=== PATIENT | male | born 1930 | race Asian ===

== ENCOUNTER 2016-06-13 17:34 | Emergency (ER) | payer MEDICARE, OTHER ==
[~2016-06-13] VITALS: Ht 165.1 cm; Wt 77.1 kg
[2016-06-13] MEDS ORDERED: Ampicillin/Sulbactam Sod 3 GM in NS 110 ML IV SCH (17:45)
[2016-06-13] MEDS ORDERED: metroNIDAZOLE 500mg 100 ML IV SCH (17:45)
[2016-06-13 18:40] VITALS: BP 125/97
[2016-06-13 19:50] VITALS: BP 130/58
[2016-06-13 23:00] VITALS: BP 131/70
--- NOTE | 2016-06-14 09:57 | Diagnostic Imaging Report ---
HISTORY: Pain.\H\ \N\COMPARISON: None. \H\ \N\TECHNIQUE: \H\ \N\Serial axial images were obtained through the cervical spine without the use of intravenous contrast on a multidetector CT. Multiplanar reformatted images were then obtained. FINDINGS: Motion artifact diminishes sensitivity of exam findings. Vertebral body heights appear preserved. Moderate to severe disc space height loss is noted, particularly at C3-C4 through C7-T1 levels. Straightening of the cervical spine is noted. There is no prevertebral or paraspinal soft tissue swelling or other CT evidence of acute fracture, subluxation, or jumped facet. 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 The visualized upper esophagus is air distended and patulous. Atherosclerotic calcification is noted at the carotid bulbs. IMPRESSION: 1. No CT evidence of acute cervical spine fracture or subluxation. 2. Multilevel cervical spondylosis with uncovertebral and facet arthropathy and OPLL resulting in moderate to severe spinal canal and neural foraminal stenosis. 3. Air distended, patulous cervical esophagus. 4. Atherosclerotic vascular disease.
--- NOTE | 2016-06-14 13:43 | Emergency Room Report ---
History of Present Illness General Chief Complaint: Multiple Trauma/Fall Source: Patient, EMS Present Illness HPI Patient is a 86-year-old male who presented after a mechanical fall while trying to transfer from wheelchair to bed. Patient had no loss of consciousness. The patient prior history of Parkinson's disease. Patient was noted to have sustained a laceration to the top of his head. He had not been vomiting or having increased confusion since the incident. The Allergies: Coded Allergies: No Known Allergies (Unverified , 06/13/16) Patient History Reviewed Nursing Documentation: PMH: Agreed, PSxH: Agreed Nursing Documentation-PMH Past Medical History: No History, Except For Hx Hypertension: Yes Review of Systems All Other Systems: limited - by poor cooperation Physical Exam Vital Signs Date Time Temp Pulse Resp B/P Pulse Ox O2 Delivery O2 Flow Rate FiO2 06/13/16 17:24 80 15 137/59 97 Room Air 06/13/16 19:50 98.6 General Appearance: well appearing, no apparent distress, alert, GCS 15 Head: normocephalic, atraumatic ENT: hearing grossly normal, normal voice Neck: full range of motion, supple Respiratory: no respiratory distress, speaking full sentences Cardiovascular #1: normal inspection, normal peripheral pulses, regular rate, rhythm, no edema Musculoskeletal: no calf tenderness, other - resting tremor Neurologic: alert, oriented x3, responsive, normal gait, other - tremor right upper extremitiy Psychiatric: normal inspection, mood/affect normal Skin: laceration Procedures Laceration/Wound Repair Laceration/Wound Repair : Consent: Emergent Wound Location: head Wound's Depth, Shape: superficial Wound Length (cm): 3 Wound Explored: clean Betadine Prep?: No Wound Debrided: minimal Wound Repaired With: Dermabond Patient Tolerated: Well Complications: None Medical Decision Making Diagnostic Impression: Primary Impression: Fall Additional Impression: Scalp laceration ER Course Patient presented after a fall.Differential diagnosis included was not limited to neck fracture, CVA, close head injury, syncopal episode, basilar ischemia. CT the head read by radiology show chronic ischemic white matter changes. There is no evident fracture or hematoma. A CT of the cervical spine read by radiologist showed degenerative changes without evident fracture. The patient' s wound was closed with Dermabond. At the time of discharge patient was awake and alert. Patient was sent back to nursing facility via ambulance. Last Vital Signs Date Time Temp Pulse Resp B/P Pulse Ox O2 Delivery O2 Flow Rate FiO2 06/13/16 23:00 83 14 131/70 100 Room Air 06/13/16 19:50 98.6 Status: improved Disposition: HOME, SELF-CARE Condition: Stable Patient Instructions: Head Injury, Adult, [id number], Tissue Adhesive Wound Care Olayinka Frederick Jun 14, 2016 13:43
--- NOTE | 2016-06-15 08:42 | Diagnostic Imaging Report ---
CT Brain without Intravenous Contrast INDICATION: Pain. COMPARISON: None TECHNIQUE: Serial axial images were obtained from the the skull base through the vertex without intravenous contrast. Coronal reformats were obtained. Dose Estimate: Total DLP 1467 mGycm CTDIvol 70 mGy FINDINGS: Few scattered periventricular and subcortical white matter hypodensities are nonspecific but may reflect the sequela of chronic microangiopathy. There is no evidence of acute intracranial hemorrhage or territorial infarct. The cortical sulci, ventricles and extra-axial CSF spaces appear prominent but likely normal for patient's age. There is no space occupying lesion, mass effect or midline shift. Mild mucosal thickening of the left greater than right maxillary sinus is noted. The remaining visualized paranasal sinuses and mastoid air cells are clear. The osseous structures are unremarkable. IMPRESSION: 1. No acute intracranial hemorrhage, midline shift or mass effect. 2. Mild cerebral atrophy. Few scattered white matter hypodensities are nonspecific but may reflect the sequela of chronic microangiopathy. 3. Mild maxillary sinus mucosal disease.
--- NOTE | 2016-06-16 00:06 | Cardiology Report ---
APPROVED REPORT EKG Measurement Heart [id number] Normal sinus rhythm Normal ECG
== END 2016-06-13 23:50 | disposition home or self-care (01) ==
LOC: EDBD 17:34 → EMR 18:16
DX: S01.01XA Laceration without foreign body of scalp, initial encounter (principal); W05.0XXA Fall from non-moving wheelchair, initial encounter; Y93.9 Activity, unspecified; Y92.9 Unspecified place or not applicable; Y99.9 Unspecified external cause status; G20 Parkinson's disease; M47.892 Other spondylosis, cervical region; R25.1 Tremor, unspecified; I10 Essential (primary) hypertension
CPT/HCPCS: 70450; 72125; 93005